=== PATIENT | male | born 1985 | race Caucasian/White ===

== ENCOUNTER 2020-06-10 17:09 | Emergency (ER) | payer BC, SELFPAY ==
[2020-06-10 17:18] VITALS: BP 137/92; PULSE 83; RESP 14; TEMP 36.4; O2SAT 98; BMI 31.6
[2020-06-10 20:45] VITALS: BP 134/79; PULSE 78; RESP 16; O2SAT 100
[2020-06-10 21:40] VITALS: BP 127/81; PULSE 68; RESP 16; O2SAT 99
[2020-06-10 22:30] VITALS: BP 121/71; PULSE 68; RESP 16; O2SAT 98
[2020-06-11 01:07] VITALS: BP 130/90; PULSE 80; RESP 16; O2SAT 100
== END 2020-06-11 01:08 | disposition left against medical advice (07) ==
PROVIDERS: Emergency Provider Emergency Medicine
CPT/HCPCS: 99281